=== PATIENT | male | born 1980 | race Caucasian/White ===

== ENCOUNTER 2023-04-04 09:13 | Emergency (ER) | payer MEDICAID, SELFPAY ==
--- NOTE | 2023-04-04 09:16 | W.ED.ALLEREA ---
HPI - Allergic Reaction General: Chief complaint: Allergic Reaction Stated complaint: allergic reaction Time Seen by Provider: 04/04/23 09:13 Source: patient Mode of arrival: ambulatory Limitations: no limitations History of Present Illness: HPI narrative: Patient is a nice 43-year-old male who presents to ED today with a complaint of an allergic reaction. Patient states a few years ago he had taken Amoxicillin following a dental extraction. Patient states after taking this medication he immediately broke out in a rash and felt like his throat was itching. He states he had some other nonspecific side effects such as weakness and stroke like symptoms. He states he was seen in [place] and kept in the hospital for two days. He states they ran all kinds of tests but never found an etiology- he didn't realize symptoms could have been medication induced thus he did not tell medical personnel about the starting the Amoxicillin so this was unknown at the time. He states he kept same bottle of antibiotics and starting noticing a toothache yesterday so took one of the tablets this morning and shortly after began to break out in a pruritic rash mainly to his hands and feels like they are swollen. He feels like his throat is itchy and states it feels like he has bumps to his hard palate. No shortness of breath or difficulty breathing. He has not noticed any lip or tongue swelling. He arrives in no acute distress with stable vital signs. MD complaint: allergic reaction Onset (ago): hour(s) Exposure: medication (Amoxicillin ) Associated symptoms: Reports itching and rash; Deny abdominal pain, dizziness, nausea or vomiting Severity: mild Treatment prior to arrival: none Previous Allergic Reaction History: other (similar reaction after taking Amoxicillin ) Review of Systems Const: Denies: fever(s), chills, body aches, fatigue or malaise Eyes: Denies: change in vision, blurry vision or eye discomfort ENMT: Denies: throat pain, odynophagia, swelling of lips/tongue, ear or mastoid pain, nasal discharge, nasal congestion, nasal obstruction or sinus pain Card: Denies: chest pain Resp: Denies: dyspnea GI: Denies: abdominal pain, nausea, vomiting or diarrhea : Denies: flank pain or dysuria Musc: Denies: neck pain, back pain, extremity pain or joint pain Skin/Breast: Reports: rash, pruritus and erythema Neuro: Denies: headache(s), numbness in extremities, weakness in extremities, sensory changes or dizziness Physical Exam Const: COMMON NORMALS: no acute distress, average body habitus, patient oriented x3, no limitations, healthy appearing, alert and well nourished GENERAL APPEARANCE: cooperative ORIENTATION/CONSCIOUSNESS: Yes awake, Yes oriented to person, Yes oriented to place and Yes oriented to time HENMT: COMMON NORMALS: normocephalic and atraumatic HEAD & SCALP: normal to inspection, normocephalic and atraumatic FACE & SINUS: normal facial exam MOUTH: Normal oral and palatal mucosa present, lip normal and other (no angioedema) TEETH & GINGIVA: Yes fair dentition THROAT: posterior oropharynx normal Eye: GENERAL EYE: appearance normal, both eyes and all related structures Neck/C-Spine: COMMON NORMALS: full ROM, no lymphadenopathy, supple and no meningeal signs Chest: COMMONS NORMALS: normal inspection of the chest Resp: COMMON NORMALS: normal respiratory effort and clear to auscultation bilaterally AUSCULTATION: clear to auscultation bilaterally Cardio: COMMON NORMALS: regular rate and regular rhythm RATE: regular rate RHYTHM: regular rhythm GI: COMMON NORMALS: Normal to inspection, nondistended, normoactive bowel sounds present, Soft to palpation, non-tender, No hepatosplenomegaly present and no masses PALPATION: Yes Soft to palpation and Yes No hepatosplenomegaly present : COMMON NORMALS: Yes no CVA tenderness BLADDER/KIDNEY EXAM: Yes no CVA tenderness Back/Pelvis: COMMON NORMALS: no CVA tenderness and thoracic and lumbar spine normal to inspection Extremity: COMMON NORMALS: normal to inspection GENERAL: Yes normal exam except as noted Neuro: DAYA COMA SCALE: document [facility] findings [place] coma scale eye opening: Spontaneous Day[place] coma scale verbal response: Orientated [place] coma scale motor response: [place]bey commands [place] coma scale total score: 15 COMMON NORMALS: patient oriented x3, moves all extremities, no focal motor deficits, no sensory deficits noted and gait normal SENSORIUM/ORIENTATION: Yes alert, Yes oriented to person, Yes oriented to place and Yes oriented to time MENINGEAL SIGNS: Yes no meningeal signs Skin: NARRATIVE SKIN EXAM: Pruritic erythematous rash noted to bilateral distal upper extremities mainly affecting the dorsal hands RASHES: rashes noted Course Vital Signs: Vital signs: Vital Signs Pulse Rate 72 04/04/23 09:17 Blood Pressure 125/77 12/19/23 09:43 Pulse Oximetry 95 04/04/23 09:43 Oxygen Delivery Me thod Room Air 04/04/23 09:43 MDM - Allergic Reaction Medical Decision Making Patient arrived in no acute distress. No signs/symptoms of angioedema. He was given IV Solu-Medrol and Benadryl. He feels like the edema and itching to his hands has greatly improved. Patient will be advised to place penicillins on his allergy list. He is requesting another antibiotic to help with his tooth ache/possible infection until he can get to a dentist. Will put him on clindamycin. Return to ED precautions given. Differential Diagnosis Likely allergic reaction Medical Records I reviewed the patient's medical records. No radiology studies performed this visit Discharge Plan Discharge Patient Disposition: Home Clinical Impression: Toothache Allergic reaction to penicillin Qualifiers: Encounter type: initial encounter Qualified Code(s): T36.0X5A - Adverse effect of penicillins, initial encounter Condition: Stable Prescriptions: New clindamycin HCl 300 mg capsule 300 mg PO Q6H 7 Days Qty: 28 0RF Discontinued amoxicillin 500 mg capsule 500 mg PO TID Rx Instructions: til gone No Action hydrocodone-acetaminophen 5-325 mg tablet 1 tab PO .EVERY 4-6 HOURS PRN (Reason: Pain) ibuprofen 200 mg Tablet 400 mg PO Q6H PRN (Reason: Pain) Discharge Orders: Discharge ED (Routine); Ordered 04/04/23 Ordered By: Anamaria Galindo Coding Level of Care Code ED Station Inspector for Ludmila Gaviria
[2023-04-04 09:17] VITALS: BP 125/77; PULSE 72; O2SAT 98; BMI 22.9
[2023-04-04] MEDS: methylPREDNISolone sod succ 125 mg/2 mL INJ IVP (09:40)
[2023-04-04] MEDS: diphenhydrAMINE 50 mg/mL SDV 1mL IVP (09:40)
[2023-04-04 09:43] VITALS: BP 125/77; O2SAT 95
== END 2023-04-04 10:11 | disposition home or self-care (01) ==
PROVIDERS: Emergency Provider Physician Assistant
DX: K08.89 Other specified disorders of teeth and supporting structures (principal); T36.0X5A Adverse effect of penicillins, initial encounter
CPT/HCPCS: 96374; 96375; 99284; J1200; J2930

== ENCOUNTER 2023-09-06 13:06 | Emergency (ER) | payer MEDICAID, SELFPAY ==
[2023-09-06 13:15] VITALS: BP 125/84; PULSE 72; RESP 16; TEMP 36.6; O2SAT 99; BMI 23.2
[2023-09-06] MEDS: fluorescein 1 mg Strip EYE-LEFT (13:40)
[2023-09-06] MEDS: tetracaine 0.5% Op Soln 4 mL Btl 1 DROP EYE-LEFT (13:40)
[2023-09-06] MEDS: neomycin-poly-dex Op 5 mL Btl 2 DROP EYE-LEFT (13:40)
--- NOTE | 2023-09-06 13:56 | W.ED.EYEPROB ---
HPI - Eye Problem General: Chief complaint: Eye Problems Stated complaint: left eye pain Time Seen by Provider: 09/06/23 13:28 History of Present Illness: 43-year-old male patient comes in today for complaints of left eye irritation. Patient reports getting something in his eye yesterday at about 9:00 in the morning. Patient continues to have discomfort for the last 24 hours. Patient appears nontoxic. Patient appears in no acute distress. Review of Systems General: Reports: 10 or more systems reviewed and unremarkable except in HPI and below Eyes: Reports: eye discomfort Physical Exam Const: COMMON NORMALS: alert HENMT: COMMON NORMALS: normocephalic HEAD & SCALP: normocephalic Eye: ALIGNMENT: Yes alignment normal EYELID: eyelids normal CONJUNCTIVA: Yes conjunctival abnormal positive left conjunctival injection SCLERA: sclerae normal CORNEA: Yes fluorescein used and other (fb within iris 4 o'clock position) Chest: COMMONS NORMALS: normal inspection of the chest Resp: COMMON NORMALS: normal respiratory effort Back/Pelvis: COMMON NORMALS: thoracic and lumbar spine normal to inspection Extremity: COMMON NORMALS: full ROM Neuro: SENSORIUM/ORIENTATION: Yes alert Psych: COMMON NORMALS: speech normal SPEECH: Yes normal speech Skin: COMMON NORMALS: turgor normal GENERAL SKIN EXAM: turgor normal Procedures FB Removal Eye Location: eye (L) Topical anesthetic used: tetracaine Foreign body: metal Evidence of corneal penetration: No Technique: cotton tip swab and needle Procedure performed under: direct visualization with magnification Post-procedure medication: ophthalmic antibiotic Patient tolerated procedure: well Course Vital Signs: Vital signs: Vital Signs Temperature 97.9 F 09/06/23 13:15 Pulse Rate 72 09/06/23 13:15 Respiratory Rate 16 09/06/23 13:15 Blood Pressure 125/84 09/06/23 13:15 Pulse Oximetry 99 09/06/23 13:15 Oxygen Delivery Me thod Room Air 09/06/23 13:15 MDM - Eye Problem Medical Decision Making 43-year-old male patient comes in today with a foreign body in his left eye. On exam we noted a small speck of probably metal to the iris area at approximately 4:00. Differential diagnosis includes corneal ulceration, corneal foreign body, corneal abrasion. Under local anesthetic and the use of a 22-gauge needle we were able to remove foreign body without difficulty. Patient tolerated well. Reviewed postprocedure care instructions with patient with recommendations for follow-up or return to the ER. Patient reported understanding. No radiology studies performed this visit Discharge Plan Discharge Patient Disposition: Home Clinical Impression: Foreign body in cornea, left eye, initial encounter Condition: Stable Prescriptions: No Action hydrocodone-acetaminophen 5-325 mg tablet 1 tab PO .EVERY 4-6 HOURS PRN (Reason: Pain) ibuprofen 200 mg Tablet 400 mg PO Q6H PRN (Reason: Pain) Discharge Orders: Discharge ED (Routine); Ordered 09/06/23 Ordered By: Sarbjit Monreal Discharge Diet: Usual diet Discharge Activity: Increase activity as tolerated Patient Instructions: Corneal Abrasion (ED) Activity Restrictions/Additional Instructions: Follow-up with eye hospice patient care secretary in 2 to 3 days for recheck. You may use tetracaine eyedrops, pain eyedrops, 1 drop every 3 hours as needed for discomfort for the next 48 hours. Use neomycin?polymyxin?dexamethasone ophthalmic suspension 2 drops to the affected eye 4 times a day while awake for the next 7 days. Do not use the pain eyedrops for longer than 48 hours as it may mask symptoms of worsening condition. Most often the cornea repairs itself quickly and should not have any pain after 48 hours. If you have discomfort you should have it reevaluated by eye hospice patient care secretary. Return to ED for new concerns. Coding Level of Care Code ED Manager [employer] for Ludmila Gaviria
== END 2023-09-06 14:15 | disposition home or self-care (01) ==
PROVIDERS: Emergency Provider Nurse Practitioner Family
DX: T15.02XA Foreign body in cornea, left eye, initial encounter (principal); W44.D0XA Magnetic metal object unspecified, entering into or through a natural orifice, initial encounter
CPT/HCPCS: 65220; 99283